=== PATIENT | female | born 1995 | race Caucasian/White ===

== ENCOUNTER 2016-07-24 11:59 | Emergency (ER) | payer BC ==
[~2016-07-24] VITALS: Ht 165.1 cm; Wt 63.4 kg
[2016-07-24 12:04] VITALS: TEMP 37.6; Ht 165.1 cm; Wt 63.4 kg
[2016-07-24] MEDS ORDERED: SODIUM CHLORIDE 0.9% 1000ML 1,000 ML IV STA (13:29)
[2016-07-24] MEDS ORDERED: IBUPROFEN 600 MG TAB PO STA (13:29)
[2016-07-24] MEDS ORDERED: ACETAMINOPHEN 325 MG TAB PO STA (13:29)
[2016-07-24] MEDS ORDERED: AMOX875T PO (13:34)
[2016-07-24] MEDS ORDERED: BCPILLS PO (13:35)
[2016-07-24 14:05] LABS: BASO % 0.2 %; BASO ABS # 0.02 K/uL (0-0.2); COMPLETE YES; EOS % 0.3 %; HEMATOCRIT 35.8 % (37-47); IG% 0.2 %; LYMPH % 13.9 %; LYMPH ABS # 1.21 K/uL (1.2-3.4); MEAN CELL VOLUME 86.1 fL (80-100); MEAN CORPUSCULAR HEMOGLOBIN 29.3 pg (25-34); MEAN CORPUSCULAR HGB CONC 34.1 g/dl (32-36); MEAN PLATELET VOLUME 10.8 fL (7.4-10.4); MONO % 11.1 %; NEUT % 74.3 %; PLATELET COUNT 241 K/uL (130-400); RED BLOOD COUNT 4.16 M/uL (4.2-5.4); WHITE BLOOD COUNT 8.72 K/uL (4.8-10.8)
[2016-07-24 14:17] LABS: INR 1.1 (0.9-1.1); PARTIAL THROMBOPLASTIN RATIO 1.3; PROTHROMBIN TIME (PATIENT) 11.6 SECONDS (9.0-12.0)
[2016-07-24 14:29] LABS: ALT/SGPT 15 U/L (12-78); AST/SGOT 8 U/L (15-37); BLOOD UREA NITROGEN 6 mg/dl (7-18); BUN/CREATININE RATIO 9.4 (10-20); CALCIUM 9.2 mg/dl (8.5-10.1); CARBON DIOXIDE 26 mmol/L (21-32); CHLORIDE 104 mmol/L (98-107); CREATININE 0.63 mg/dl (0.60-1.20); GLUCOSE 75 mg/dl (70-99); POTASSIUM 3.8 mmol/L (3.5-5.1); SODIUM 140 mmol/L (136-145)
[2016-07-24 14:32] LABS: ALKALINE PHOSPHATASE 60 U/L (45-117)
[2016-07-24 15:53] LABS: URINE APPEARANCE CLOUDY (CLEAR); URINE BILIRUBIN NEG (NEG); URINE COLOR YELLOW; URINE EPITHELIAL CELL AUTO >30 /lpf (0-5); URINE NITRITE NEG (NEG); URINE SPECIFIC GRAVITY 1.023 (1.000-1.030); UROBILINOGEN NEG (NEG)
[2016-07-24 16:00] LABS: MANUAL MICROSCOPIC REQUIRED? NO; REVIEW REQ? YES
[2016-07-24 16:15] LABS: URINE MUCUS PRESENT (NONE PRSENT)
[2016-07-24 16:25] LABS: INFLUENZA A PCR Neg for Influ A (NEG); INFLUENZA B PCR Neg for Influ B (NEG)
--- NOTE | 2016-07-24 17:09 | DIAGNOSTIC IMAGING REPORT ---
CHEST 2 VIEWS ROUTINE CLINICAL HISTORY: fever eval for pnea fever. Pain. COMPARISON STUDY: No previous studies for comparison. FINDINGS: The bones soft tissues and hemidiaphragms are normal. The cardiomediastinal silhouette is normal. The lungs are clear. The pulmonary vasculature is normal. IMPRESSION: Negative chest. Electronically signed by: Bhupendra Scott M.D. 07/24/2016 5:08 PM Dictated Date/Time: 07/24/2016 5:07 PM
[2016-07-24 17:58] VITALS: BP 115/59; PULSE 80; O2SAT 99
--- NOTE | 2016-07-24 19:44 | EMERGENCY ROOM VISIT NOTE ---
History Report prepared by Derek: Gayle Carrillo Under the Supervision of: Dr. Ramon George M.D. First contact with patient: 13:20 Chief Complaint: FLU LIKE SX Stated Complaint: FEVER,HEADACHE,VOMITING,DIARRHEA History of Present Illness The patient is a 21 year old female who presents to the Emergency Room with complaints of worsening flu like symptoms that began 4 days ago. On Saturday, the patient had a headache and hoarse voice. Saturday, she developed a fever, nausea , diarrhea, sore throat, and congestion. Saturday, her fevers reached up to 103. Her temperature improved with Tylenol and ibuprofen but would go back up to 103. Yesterday, she started to vomit. Early this morning she developed a cough. She estimates having about 8 episodes of diarrhea yesterday and 2-3 episodes today. She has not been eating. She notes that she feels dizzy when she walks and "sees stars." Currently her biggest complaints complaints are her headaches and fevers. She notes that she has mild neck stiffness and pain. The patient was seen by [facility] 2 days ago and was started on Augmentin for a sinus infection. She has not had a flu shot this year but a flu test at [facility] was negative. She most recently took Tylenol at 8AM this morning. Denies bloody stool or other complaints. Source of History: patient Onset: 4 days ago Position: other (global) Quality: other (flu-like symptoms) Timing: worsening Modifying Factors (Relieving): tylenol, ibuprofen Associated Symptoms: + cough, + diarrhea, + fevers (tmax 103), + headache, + nausea, + neck pain (mild), + sorethroat, + vomiting Note: Other symptoms: congestion, loss of appetite, dizziness Review of Systems See HPI for pertinent positives & negatives. A total of 10 systems reviewed and were otherwise negative. Past Medical & Surgical Medical Problems: (1) No Known Active Medical Problems Family History Hypertension Social History Smoking Status: Never Smoker Alcohol Use: none Housing Status: lives with roommate Occupation Status: [employer] student Current/Historical Medications Scheduled Amoxicillin & Pot Clavulanate (Augmentin 875-125 mg), 1 TAB PO BID Control Pills ( Control Pills), 1 TAB PO DAILY Allergies Coded Allergies: Sulfa Antibiotics (Verified Allergy, Unknown, rash, 07/24/16) Physical Exam Vital Signs Date Time Temp Pulse Resp B/P Pulse Ox O2 Delivery O2 Flow Rate FiO2 07/24/16 17:58 80 16 115/59 99 Room Air 07/24/16 16:21 92 16 106/55 99 Room Air 07/24/16 14:11 111 16 126/93 100 Room Air 07/24/16 12:04 37.6 125 20 144/81 99 Room Air Physical Exam Constitutional: Vital signs reviewed. Eyes: Pupils are equal round reactive to light. Conjunctiva are noninjected. ENT: Pharynx is clear without erythema or exudate. Mucous membranes are dry. Neck supple without meningeal signs. Respiratory: Clear to auscultation bilaterally. Breath sounds are equal bilaterally. Cardiovascular: Tachycardic rate at 110 and regular rhythm. No rubs or gallops. GI: Soft, nondistended and nontender. Bowel sounds are present. Musculoskeletal: No peripheral edema. No CVA tenderness. Integumentary: No cyanosis. Neurological: The patient is awake and alert. Cranial nerves II-XII are intact. Motor is 5 out of 5 all extremities. Sensation is intact to light touch all extremities. Normal speech. No pronator drift. No Kernig's or Brudzinski's signs. Psychiatric: Normal affect. Medical Decision & Procedures ER Provider Diagnostic Interpretation: Radiology results as stated below per my review and the radiologist's interpretation: CHEST 2 VIEWS ROUTINE CLINICAL HISTORY: fever eval for pnea fever. Pain. COMPARISON STUDY: No previous studies for comparison. FINDINGS: The bones soft tissues and hemidiaphragms are normal. The cardiomediastinal silhouette is normal. The lungs are clear. The pulmonary vasculature is normal. IMPRESSION: Negative chest. Electronically signed by: Bhupendra Scott M.D. 07/24/2016 5:08 PM Dictated Date/Time: 07/24/2016 5:07 PM Laboratory Results 07/24/16 13:50 Red Blood Count 4.16, Mean Corpuscular Volume 86.1, Mean Corpuscular Hemoglobin 29.3, Mean Corpuscular Hemoglobin Concent 34.1, Mean Platelet Volume 10.8, Neutrophils (%) (Auto) 74.3, Lymphocytes (%) (Auto) 13.9, Monocytes (%) (Auto) 11.1, Eosinophils (%) (Auto) 0.3, Basophils (%) (Auto) 0.2, Neutrophils # (Auto ) 6.47, Lymphocytes # (Auto) 1.21, Monocytes # (Auto) 0.97, Eosinophils # (Auto ) 0.03, Basophils # (Auto) 0.02 07/24/16 13:50 Test 07/24/16 13:50 07/24/16 14:11 07/24/16 15:30 White Blood Count 8.72 K/uL (4.8-10.8) Red Blood Count 4.16 M/uL (4.2-5.4) Hemoglobin 12.2 g/dL (12.0-16.0) Hematocrit 35.8 % (37-47) Mean Corpuscular Volume 86.1 fL (80-100) Mean Corpuscular Hemoglobin 29.3 pg (25-34) Mean Corpuscular Hemoglobin Concent 34.1 g/dl (32-36) Platelet Count 241 K/uL (130-400) Mean Platelet Volume 10.8 fL (7.4-10.4) Neutrophils (%) (Auto) 74.3 % Lymphocytes (%) (Auto) 13.9 % Monocytes (%) (Auto) 11.1 % Eosinophils (%) (Auto) 0.3 % Basophils (%) (Auto) 0.2 % Neutrophils # (Auto) 6.47 K/uL (1.4-6.5) Lymphocytes # (Auto) 1.21 K/uL (1.2-3.4) Monocytes # (Auto) 0.97 K/uL (0.11-0.59) Eosinophils # (Auto) 0.03 K/uL (0-0.5) Basophils # (Auto) 0.02 K/uL (0-0.2) RDW Standard Deviation 38.9 fL (36.4-46.3) RDW Coefficient of Variation 12.3 % (11.5-14.5) Immature Granulocyte % (Auto) 0.2 % Immature Granulocyte # (Auto) 0.02 K/uL (0.00-0.02) Prothrombin Time 11.6 SECONDS (9.0-12.0) Prothromb Time International Ratio 1.1 (0.9-1.1) Activated Partial Thromboplast Time 33.1 SECONDS (21.0-31.0) Partial Thromboplastin Ratio 1.3 Anion Gap 10.0 mmol/L (3-11) Est Creatinine Clear Calc Drug Dose 127.1 ml/min Estimated GFR () 148.6 Estimated GFR (Non- 128.2 BUN/Creatinine Ratio 9.4 (10-20) Calcium Level 9.2 mg/dl (8.5-10.1) Total Bilirubin 0.3 mg/dl (0.2-1) Direct Bilirubin < 0.1 mg/dl (0-0.2) Aspartate Amino Transf (AST/SGOT) 8 U/L (15-37) Alanine Aminotransferase (ALT/SGPT) 15 U/L (12-78) Alkaline Phosphatase 60 U/L (45-117) Total Protein 8.0 gm/dl (6.4-8.2) Albumin 3.9 gm/dl (3.4-5.0) Monoscreen NEG (NEG) Influenza Type A (RT-PCR) Neg for Influ A (NEG) Influenza Type B (RT-PCR) Neg for Influ B (NEG) Urine Color YELLOW Urine Appearance CLOUDY (CLEAR) Urine pH 6.0 (4.5-7.5) Urine Specific [place] 1.023 (1.000-1.030) Urine Protein NEG (NEG) Urine Glucose (UA) NEG (NEG) Urine Ketones 2+ (NEG) Urine Occult Blood 2+ (NEG) Urine Nitrite NEG (NEG) Urine Bilirubin NEG (NEG) Urine Urobilinogen NEG (NEG) Urine Leukocyte Esterase MODERATE (NEG) Urine WBC (Auto) 10-30 /hpf (0-5) Urine RBC (Auto) 5-10 /hpf (0-4) Urine Hyaline Casts (Auto) 10-30 /lpf (0-5) Urine Epithelial Cells (Auto) >30 /lpf (0-5) Urine Bacteria (Auto) NEG (NEG) Urine Mucus PRESENT (NONE PRSENT) Urine Test NEG (NEG) Laboratory results as reviewed by me. Medications Administered Medications (Trade) Dose Ordered Sig/Zion Route Start Time Stop Time Status Last Admin Dose Admin Sodium Chloride (Nss 1000ml) 1,000 ml @ 999 mls/hr Q1H1M STAT IV 07/24/16 13:29 07/24/16 14:29 DC 07/24/16 14:07 999 MLS/HR Acetaminophen (Tylenol Tab) 650 mg NOW STAT PO 07/24/16 13:29 07/24/16 13:32 DC 07/24/16 14:07 650 MG Ibuprofen (Motrin Tab) 600 mg NOW STAT PO 07/24/16 13:29 07/24/16 13:32 DC 07/24/16 14:07 600 MG ED Course 1323: The patient was evaluated in room C5. A complete history and physical exam was performed. 1329: Ordered ibuprofen 600 mg PO, Tylenol Tab 650 mg PO, NSS 1000 ml @ 999 mls/ hr IV. 1528: I talked to the patient about her test results so far. She still has a headache. She will be giving a urine sample. 1740: I talked to the patient and her mother about test results. I discussed the risks and benefits of a lumbar puncture. She and her mother declined at this time. The patient states that she is feeling much better. Her headache is improved but she still has a headache at the back of her head. She will follow up with a physician tomorrow and likely go home with her mother tomorrow. I discussed discharge instructions with them. The patient was discharged home. Medical Decision This is a 21-year-old female who presents with flulike symptoms. Differential diagnosis includes influenza, infectious mononucleosis, UTI, pyelonephritis, viral syndrome, meningitis, encephalitis. I did perform a limited focused review of portions of the patient's old chart on the electronic medical record. The patient has had no prior visits to this hospital. I did evaluate the patient as noted above. The patient has been sick for approximately 4 days. She does complain of a posterior headache with some mild stiffness in her neck. She does not have any significant meningeal signs on examination and is neurologically intact. IV access was established. I did treat the patient with normal saline IV. She was also given ibuprofen and Tylenol. I did order a urinalysis which was equivocal. She did have significant epithelial cells. She denies having any urinary symptoms and has no CVA tenderness. She is also currently on Augmentin. A urine culture was sent. Urine test is negative. I did order and personally review the patient's her chest x-ray as described above. There is no evidence of pneumonia. I did order and review the patient's blood work as noted in the electronic medical record. Her white blood cell count is not elevated. Differential shows increased monocytes. Monospot is negative. PCR influenza testing is negative. I did reassess the patient. She is feeling much better at this time. She states that she still has somewhat of a headache to the back of her head. She looks very well in appearance and again has no meningeal signs. I did, however, discuss with her and her mother risks and benefits of a lumbar puncture to rule out meningitis. While I do not have a high suspicion for meningitis, I did explain to them that I could not rule it out completely without LP. I also explained to them the potential disease course for a bacterial meningitis. After further discussion they decided that they would forego the lumbar puncture. I did feel this was reasonable as again she is very well-appearing without meningeal signs. She has no elevation of her white blood cell count and she has had symptoms for 4 days. I did, however, recommend that she follow up within 24 hours with a physician. I also discussed return instructions as outlined below. She was discharged in good condition. Impression Primary Impression: Acute febrile illness Additional Impression: Headache Scribe Attestation The scribe's documentation has been prepared under my direct and personally reviewed by me in its entirety. I confirm that the note above accurately reflects all work, treatment, procedures, and medical decision making performed by me. Departure Information Dispostion Home / Self-Care Referrals No Doctor, Assigned (PCP) Forms HOME CARE DOCUMENTATION FORM, IMPORTANT VISIT INFORMATION Patient Instructions My [facility] Additional Instructions You have been examined and treated today on an emergency basis only. This is not a substitute for, or an effort to provide, complete comprehensive medical care. It is impossible to recognize and treat all injuries or illnesses in a single emergency department visit. It is therefore important that you follow up closely with your physician within 24 hours. Call as soon as possible for an appointment. Return for worsening symptoms or if you develop rash, difficulty breathing, confusion, vomiting, or any other concerning symptoms. Problem Qualifiers
== END 2016-07-24 18:00 | disposition home or self-care (01) ==
LOC: C.EDB 12:04 → C.EDC 18:00
DX: R50.9 Fever, unspecified (principal); R51 Headache; Z82.49 Family history of ischemic heart disease and other diseases of the circulatory system; Z79.3 Long term (current) use of hormonal contraceptives; Z88.2 Allergy status to sulfonamides